=== PATIENT | male | born 1990 | race Caucasian/White ===

== ENCOUNTER 2018-02-27 00:12 | Emergency (ER) | payer BC, OTHER ==
[2018-02-27 00:20] VITALS: BP 141/91
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
== END 2018-02-27 00:49 | disposition home or self-care (01) ==
LOC: JD.ED 00:12
DX: M77.11 Lateral epicondylitis, right elbow (principal)
CPT/HCPCS: 99283